=== PATIENT | male | born 1945 | race Caucasian/White ===

== ENCOUNTER → 2018-07-21 | Day surgery (SDC) | payer MEDICARE, OTHER ==
[~2018-07-21] MED LIST: Phenylephrine/Normal Saline 100 MCG/ML 10 ML Syringe IV ONE; Propofol 200 MG/20 ML SDV IV ONE; ePHEDrine 50 MG/ML SDV IV ONE
[2018-07-21] MEDS: Lactated Ringers 1,000 ML IV SCH (07:46)
[2018-07-21 09:15] VITALS: BP 120/56
--- NOTE | 2018-07-21 10:08 | OR ---
DATE OF OPERATION: 07/21/2017 PREOPERATIVE DIAGNOSIS: FOLLOWUP POLYPS. POSTOPERATIVE DIAGNOSIS: FOLLOWUP POLYPS. SURGEON: Scott Vincent MD PROCEDURE: FULL-LENGTH COLONOSCOPY WITH FORCEPS POLYP REMOVAL X1, SNARE POLYP REMOVAL X1. 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 COMPLICATIONS: None. SPECIMEN: Tubular adenomas x2. FINDINGS: 1. Full-length colonoscopy. 2. Minimal sigmoid diverticulosis. 3. Small sessile polyp, distal transverse colon. 4. Small tubular adenoma, distal sigmoid colon. RECOMMENDATIONS: Followup colonoscopy in 5 years pending path reports. INDICATIONS: The patient 3 years ago had a large tubulovillous adenoma, removed from the sigmoid colon by surgery. He is due for a 5-year followup. DESCRIPTION OF PROCEDURE: The patient was prepped and draped, placed in the left lateral decubitus position. A lubricated Olympus colonoscope was inserted and easily advanced to the cecum. We were able to directly visualize the ileocecal valve and appendiceal orifice. The bowel prep was excellent. Upon withdrawal of the scope, the cecum, ascending colon were benign. In the distal transverse colon, the patient had a small flat sessile polyp along the fold that was very difficult to get to due to its location. We were able to get 2 good forceps biopsies and removed it in its entirety. The rest of the transverse and descending colons were benign. The patient does have a few scattered diverticula in the sigmoid, but minimal in any severity. In the distal sigmoid around 30 cm, the patient had a small tubular adenoma removed easily with a snare and suctioned into polyp trap #1. The rectal vault was benign. Retroflexion of scope in the rectum showed no anal lesions. Air was suctioned, scope removed without complication. DANIELA/HAZEL /[id number] cc: [place] Cody [address] [address]
== END ==
LOC: CC.SDS 07:25
PROVIDERS: ATTEND Family Medicine
DX: Z12.11 Encounter for screening for malignant neoplasm of colon (principal); D12.5 Benign neoplasm of sigmoid colon; K51.40 Inflammatory polyps of colon without complications; K57.30 Diverticulosis of large intestine without perforation or abscess without bleeding; I10 Essential (primary) hypertension; J44.9 Chronic obstructive pulmonary disease, unspecified; E11.9 Type 2 diabetes mellitus without complications; E78.5 Hyperlipidemia, unspecified; F41.9 Anxiety disorder, unspecified; Z87.891 Personal history of nicotine dependence; Z86.010 Personal history of colon polyps; Z79.4 Long term (current) use of insulin; Z79.82 Long term (current) use of aspirin; Z79.899 Other long term (current) drug therapy; Z88.2 Allergy status to sulfonamides
CPT/HCPCS: 45380; 45385; J2370; J2704; J7120

== ENCOUNTER 2021-10-27 16:33 | Emergency (ER) | payer MEDICARE, OTHER ==
[2021-10-27 16:51] VITALS: BP 184/89; PULSE 85
== END 2021-10-27 17:50 | disposition home or self-care (01) ==
LOC: CC.ED 16:33
DX: I11.9 Hypertensive heart disease without heart failure (principal); E11.9 Type 2 diabetes mellitus without complications; Z87.891 Personal history of nicotine dependence; Z79.899 Other long term (current) drug therapy; Z88.2 Allergy status to sulfonamides
CPT/HCPCS: 99283; 99284

== ENCOUNTER 2022-10-10 15:45 | Emergency (ER) | payer MEDICARE, OTHER ==
[2022-10-10] MEDS ORDERED: 50% Dextrose in Water 50 ML Syringe IVPUSH ONE ×6 (16:08→17:48)
[2022-10-10] MEDS ORDERED: Dextrose 5% in Water 1,000 ML IV SCH (16:15)
[2022-10-10] MEDS ORDERED: Sodium Chloride 0.9% 500 ML IV STA (16:24)
[2022-10-10 16:45] LABS: CHLORIDE,CL 93 mEq/L (98-106); SODIUM,NA 128 mEq/L (136-145)
[2022-10-10 17:11] LABS: ESTIMATED GFR 13 mL/min (>=60)
[2022-10-10] MEDS ORDERED: Sodium Chloride 0.9% 500 ML ONE (17:13)
[2022-10-10] MEDS ORDERED: EPINEPHrine 1:10,000 1 MG/10 ML Syringe IVPUSH ONE ×8 (17:24→18:36)
[2022-10-10] MEDS ORDERED: Sodium Bicarbonate 8.4% 50 MEQ/50 ML Syringe IVPUSH ONE (17:40)
[2022-10-10] MEDS ORDERED: Calcium Gluconate 10% 1 GM/10 ML SDV IVPUSH ONE (18:01)
[2022-10-10] MEDS ORDERED: DOPamine/Dextrose 5%-Water 400 MG/250 ML BAG IV SCH (18:02)
[2022-10-10] MEDS: Calcium Gluconate 10% 1 GM/10 ML SDV IVPUSH ONE ×2 (18:06→18:47)
[2022-10-10 18:50] VITALS: BP 114/79; PULSE 132
== END 2022-10-10 18:42 | disposition expired ==
LOC: CC.ED 15:45
DX: I46.9 Cardiac arrest, cause unspecified (principal)
CPT/HCPCS: 36415; 71045; 80053; 83605; 83735; 84484; 85025; 93005; 93010; 96361; 96365; 96375; 96376; 99284; 99285-25; J0171; J0612; J1265; J3490; J7040; J7060